=== PATIENT | female | born 1995 | race Caucasian/White ===

== ENCOUNTER 2021-06-08 12:52 | Emergency (ER) | payer MEDICAID, SELFPAY ==
--- NOTE | ~2021-06-08 | XR_ITS ---
EXAMINATION: XR FOOT, LEFT CLINICAL INFORMATION: Injury. Pain. COMPARISON: None TECHNIQUE: AP, lateral, and oblique views of the left foot. FINDINGS: The bones and soft tissues are normal. No fracture. Alignment is anatomic. Joint spaces are maintained. XR/XR foot LT min 3V IMPRESSION: Normal left foot.
[2021-06-08 13:34] VITALS: BP 131/91; PULSE 76; RESP 18; TEMP 36.6; O2SAT 99; BMI 29.8
--- NOTE | 2021-06-08 14:44 | ED.LOWEXIN ---
HPI - Extremity Injury (Lower) General Chief Complaint: Extremity Injury, Lower Stated Complaint: left foot injury Time Seen by Provider: 06/08/21 14:44 History of Present Illness HPI Narrative: Patient complains of left foot injury yesterday when she twisted it at home, she is able to walk on it but with a limp and some discomfort, no other injury Related Data Allergies Allergy/AdvReac Type Severity Reaction Status Date / Time amoxicillin [AMOXICILLIN] Allergy Unknown ANAPHYLAXIS Unverified 03/08/20 16:21 hydrocodone [From VICODIN] Allergy Unknown UNKNOWN Unverified 03/08/20 16:21 kiwi [KIWI] Allergy Unknown ANGIOEDEMA Unverified 03/08/20 16:21 Penicillins [PENICILLINS] Allergy Unknown ANAPHYLAXIS Unverified 03/08/20 16:21 Review of Systems Review of Systems: positive for left foot pain Negatives are no head injury no neck injury no neck pain no back pain no numbness weakness or tingling no laceration no skin changes no other extremity pains Yes all other systems are reviewed and are negative PMFSH Past Medical History Source: nursing notes reviewed Medical History (Updated 06/08/21 @ 14:48 by ALBERTO Castillo) Celiac disease Social History Social History Advance Directives: No Advance Directives Information Provided: Yes Patient : Yes Physical Exam Vital Signs: Vital Signs: Last Vital Signs Temp 98 F 06/08/21 13:34 Pulse 76 06/08/21 13:34 Resp 18 06/08/21 13:34 BP 131/91 H 06/08/21 13:34 Pulse Ox 99 06/08/21 13:34 BMI result Body Mass Index 29.8 general appearance no acute distress Head is normocephalic atraumatic Neck is supple Respiratory no distress The back full range of motion Extremities the left foot has tenderness over the distal dorsal foot but there is full range of motion in the toes and in the ankle there is no tenderness in the ankle no tenderness over the Achilles tendon squeeze test is normal, gait is a limping gait, skin is normal in appearance with no ecchymosis no laceration no break in the skin no redness no warmth and neurovascular intact distal with good sensation and motor Course Course Course Narrative: left foot x-ray is negative, exam is consistent with a sprain and patient ambulates with a limp but no need for crutches and is discharged Discharge Plan Discharge Clinical Impression: Sprain of foot, left Patient Disposition: Home, Self-Care Additional Instructions: the x-ray of her foot was negative no broken bone seen If needed you can follow with orthopedist in a week to 2 weeks if not improving X-rays a good test but not perfect and can miss injuries Return any time if worse Apply ice, Motrin if needed Referrals: Juana Riddle PA-C [Physician Job Counselor] - 2 days ( left foot injury)
== END 2021-06-08 15:14 | disposition home or self-care (01) ==
PROVIDERS: Emergency Provider Emergency Medicine
DX: S93.602A Unspecified sprain of left foot, initial encounter (principal); X50.1XXA Overexertion from prolonged static or awkward postures, initial encounter; Y93.9 Activity, unspecified; Y92.009 Unspecified place in unspecified non-institutional (private) residence as the place of occurrence of the external cause; Y99.9 Unspecified external cause status
CPT/HCPCS: 73630; 99283

== ENCOUNTER 2022-01-12 23:46 | Emergency (ER) | payer MEDICAID, SELFPAY ==
[2022-01-13 01:16] VITALS: BP 141/105; PULSE 68; RESP 16; TEMP 36.2; O2SAT 100; BMI 28.2
[2022-01-13 01:32] LABS: COVID-19 Test Negative (Negative); IDNOW Serial# 16C4AD1C; Influenza A Negative (Negative); Influenza B2 Negative (Negative)
[2022-01-13 04:31] LABS: Strep A Nucleic Acid Positive (Negative)
--- NOTE | 2022-01-13 04:53 | ED.URI ---
HPI - URI/Sore Throat General Chief Complaint: Upper Respiratory Symptoms Stated Complaint: tonsilitis, ear & head pain, fainted Time Seen by Provider: 01/13/22 04:34 Source: patient Mode of arrival: ambulatory Limitations: no limitations History of Present Illness HPI Narrative: 26-year-old female who presents emergency department for evaluation of right-sided sore throat. She states that her symptoms started yesterday at 17:00 hours. She describes the pain is a constant hurting pain which is worse with swallowing. The pain is 6/10 at its worst. She states she gets 2-3 episodes of strep throat per year and this feels like a strep throat to her. She denied fever, chills, rhinorrhea, cough, chest pain, shortness of breath, nausea, vomiting or diarrhea. Patient states that in 2016 she did have a cavernous sinus thrombosis and was treated with IV heparin then committed. MD elicited complaint: sore throat Onset (ago): day(s) (1) Consistency: constant Severity: moderate Pain scale (0-10): 6 Able to tolerate fluids by mouth: Yes Exacerbating factors: swallowing and speaking Relieving factors: nothing Treatments prior to arrival: none Related Data Previous Rx's Medication Instructions Recorded clindamycin HCl 300 mg capsule 600 mg PO Q8H 10 days #60 caps 01/13/22 Allergies Allergy/AdvReac Type Severity Reaction Status Date / Time amoxicillin [AMOXICILLIN] Allergy Unknown ANAPHYLAXIS Verified 01/13/22 01:19 hydrocodone [From VICODIN] Allergy Unknown UNKNOWN Verified 01/13/22 01:19 kiwi [KIWI] Allergy Unknown ANGIOEDEMA Verified 01/13/22 01:19 Penicillins [PENICILLINS] Allergy Unknown ANAPHYLAXIS Verified 01/13/22 01:19 Review of Systems Review of Systems: Yes all other systems are reviewed and are negative [facility] Past Medical History FOR[facility] Narrative: Past medical history: Exercise-induced asthma, cavernous sinus thrombosis 2016. Past surgical history: None. Social history: She denies tobacco use. She states she drinks alcohol 1 or 2 days every other week, she occasionally smokes marijuana. Medical History Celiac disease Social History Social History Advance Directives: No Advance Directives Information Provided: Yes Physical Exam Vital Signs: Vital Signs: Last Vital Signs Temp 97.1 F 01/13/22 01:16 Pulse 68 01/13/22 01:16 Resp 16 01/13/22 01:16 BP 141/105 H 01/13/22 01:16 Pulse Ox 100 01/13/22 01:16 O2 Del Method 01/13/22 01:16 BMI result Body Mass Index 28.2 Const: General: cooperative and no acute distress Orientation/consciousness: oriented to person and oriented to place Limitations: no limitations HEENT: Head: Yes normal to inspection, Yes normocephalic and Yes atraumatic Ears: external ears normal General nose exam: Normal external nose present Face and sinus: Yes normal facial exam Mouth: Normal oral and palatal mucosa present Throat: Yes other (Posterior erythema with exudates right tonsil slightly larger than left) Eyes: General: appearance normal, both eyes and all related structures Pupils: Equal, round and reactive pupils present Neck: Neck: Yes normal visual inspection, Yes no lymphadenopathy, Yes trachea midline and Yes supple Chest: Chest palpation & inspection: normal inspection of the chest and normal palpation of entire chest wall Resp: Effort & Inspection: normal respiratory effort and able to speak in complete sentences Auscultation: clear to auscultation bilaterally Cardio: Rate: regular rate Rhythm: regular rhythm Heart sounds: S1 normal heart sound present, S2 normal heart sound present and no murmurs GI: Inspection: Yes normal to inspection Palpation (GI): Soft to palpation, nontender and no guarding Auscultation: normal bowel sounds : General: Yes no CVA tenderness Back/Spine/Pelvis: Back: no CVA tenderness Skin: General skin exam: no rashes or lesions noted Neuro: General: oriented to person and oriented to place Cranial nerves: Yes CN's II-XII intact bilaterally and Yes Equal, round and reactive pupils present Cognition (Neuro): normal cognition Motor exam (neuro): 5/5 motor strength present throughout Extrem: General: Yes normal to inspection Psych: Appearance: grossly normal Speech and movement: Normal speech and movement present Affect: normal affect Attitude: cooperative Thought process: Normal thought process present Thought content: Normal thought content present Course Course Course Narrative: 26-year-old female with a history of frequent strep throat who presents emergency department for evaluation of sore throat x1 day, right side greater than left. Vital signs were unremarkable except for slight elevation of blood pressure of 141/1 0 5. Patient does have posterior erythema and exudates on her throat exam. Her right tonsil is slightly larger than the left. She has no significant tenderness palpation of her neck. The patient's COVID-19 and influenza tests were negative. Rapid strep test was positive. Patient's presentation is consistent with strep throat, I do not think that she has Leimer's disease or peritonsillar abscess. The patient is pen allergic therefore she was started on clindamycin 600 mg 3 times a day for 10 days. She was given her 1st dose in the emergency department she was also given ibuprofen 600 mg orally for pain. MDM - URI/Sore Throat Lab Data Labs: Lab Results 01/13/22 01/13/22 01/13/22 Range/Units 01:08 01:08 04:18 COVID-19 (FARIDA) Negative (Negative) COVID-19 Clin Com See Note Influenza Type A (PATRICIA) Negative (Negative) Influenza Type B (PATRICIA) Negative (Negative) Influenza A & B Note See Note S. pyogenes GrpA PATRICIA Positive A (Negative) Discharge Plan Discharge Clinical Impression: Strep throat Patient Disposition: Home, Self-Care Instructions: Strep Throat (ED) Additional Instructions: Your COVID-19 and influenza tests were negative. Your rapid strep test was positive. Take clindamycin 600 mg 3 times a day for 10 days. Take ibuprofen 200 mg pills, 3 pills every 6 hours as needed for pain. Take Tylenol (acetaminophen) 500 mg pills, 2 pills every 4 to 6 hours as needed for pain. Follow-up with your doctor in 2 days. Please return to the emergency department if your symptoms get worse or if you develop any symptoms that are concerning to you. Prescriptions: New clindamycin HCl 300 mg capsule 600 mg PO Q8H 10 Days Qty: 60 0RF
[2022-01-13] MEDS: Ibuprofen 600 MG TABLET PO (05:10)
[2022-01-13] MEDS: Clindamycin HCL 300 MG CAPSULE 600 MG PO (05:11)
== END 2022-01-13 05:21 | disposition home or self-care (01) ==
PROVIDERS: Emergency Provider Emergency Medicine Emergency Medical Services
DX: J02.0 Streptococcal pharyngitis (principal); R51.9 Headache, unspecified; Z79.899 Other long term (current) drug therapy; Z20.822 Contact with and (suspected) exposure to COVID-19
CPT/HCPCS: 36415; 87502; 87635; 87651; 99283